=== PATIENT | male | born 1945 | race Caucasian/White ===

== ENCOUNTER 2018-06-23 07:31 | Day surgery (SDC) | payer MEDICARE ==
[~2018-06-23 07:31] MED LIST: ACETAMINOPHEN 325 MG TAB PO; PHENYLEPHRINE HCL 10 % OPHTH. SOL 5ML OD; PROPARACAINE 0.5% OPHTH SOL 15ML OD
[2018-06-23] MEDS ORDERED: CYCLOPENTOLATE 2% OPHTH SOLN 2ML BTL As Ordered (07:41)
[2018-06-23] MEDS ORDERED: OFLOXACIN 0.3 % (OCUFLOX) OPTH SOL 5ML As Ordered (07:41)
[2018-06-23] MEDS ORDERED: PHENYLEPHRINE 2.5% OPHTH SOL 2ML As Ordered (07:41)
[2018-06-23] MEDS ORDERED: TROPICAMIDE 1% OPHTH SOLN 2ML As Ordered (07:41)
[2018-06-23] MEDS ORDERED: MIDAZOLAM INJ 2 MG/2 ML VIAL (J2250) As Ordered (07:52)
[2018-06-23] MEDS ORDERED: fentaNYL 100 MCG/2 ML INJECTION (J3010) As Ordered (07:52)
[2018-06-23] MEDS: PHENYLEPHRINE 2.5% OPHTH SOL 2ML OD (08:10)
[2018-06-23] MEDS: OFLOXACIN 0.3 % (OCUFLOX) OPTH SOL 5ML OD (08:10)
[2018-06-23] MEDS: TROPICAMIDE 1% OPHTH SOLN 2ML OD (08:10)
[2018-06-23] MEDS: CYCLOPENTOLATE 2% OPHTH SOLN 2ML BTL OD (08:10)
[2018-06-23] MEDS: LIDOCAINE 3.5 % 1ML OPHTH TOPICAL GEL OU (08:10)
[2018-06-23] MEDS ORDERED: dexameTHASONE 4 MG/ML 1ML VIAL (J1100) As Ordered (08:19)
[2018-06-23] MEDS ORDERED: ONDANSETRON 4MG/2ML VIAL (J2405) As Ordered (08:19)
[2018-06-23] MEDS: POVIDONE-IODINE 5% OPHTH PREP SOL 30ML As Ordered (09:14)
[2018-06-23] MEDS: LIDOCAINE 1% SDV 5 ML VIAL As Ordered (09:19)
[2018-06-23] MEDS: BALANCED SALT IRRIGATION SOLUTION 500ML BAG (FOR OR EYE MACHINE) As Ordered (09:20)
[2018-06-23] MEDS: HEALON DUET (HEALON 10MG/ML 0.55ML & HEALON ENDOCOAT 30MG/ML 0.85ML) As Ordered (09:26)
[2018-06-23] MEDS: CEFUROXIME 1MG/0.1ML INTRACAMERAL INJ As Ordered (09:27)
[2018-06-23] MEDS: ACETYLCHOLINE OPHTH SOLN 1% 2ML (MIOCHOL-E) As Ordered (09:29)
[2018-06-23] MEDS: KETOROLAC 0.5% OPHTH SOLN OD (09:45)
[2018-06-23] MEDS ORDERED: TRIMETHOBENZAMIDE 300 MG CAP PO (09:45)
[2018-06-23] MEDS: AcetaZOLAMIDE 500 MG ER CAP PO (09:51)
== END 2018-06-23 10:13 | disposition home or self-care (01) ==
LOC: M SDC 07:31
DX: H25.11 Age-related nuclear cataract, right eye (principal); K21.9 Gastro-esophageal reflux disease without esophagitis; F17.210 Nicotine dependence, cigarettes, uncomplicated
CPT/HCPCS: 66984

== ENCOUNTER 2018-07-14 06:35 | Day surgery (SDC) | payer OTHER, MEDICARE ==
[~2018-07-14 06:35] MED LIST changes: -PHENYLEPHRINE HCL 10 % OPHTH. SOL 5ML OD; -PROPARACAINE 0.5% OPHTH SOL 15ML OD
[2018-07-14] MEDS: HEALON DUET (HEALON 10MG/ML 0.55ML & HEALON ENDOCOAT 30MG/ML 0.85ML) As Ordered (06:38)
[2018-07-14] MEDS ORDERED: PHENYLEPHRINE HCL 10 % OPHTH. SOL 5ML OS (07:00)
[2018-07-14] MEDS ORDERED: PROPARACAINE 0.5% OPHTH SOL 15ML OS (07:01)
[2018-07-14] MEDS: LIDOCAINE 3.5 % 1ML OPHTH TOPICAL GEL OU (07:07)
[2018-07-14] MEDS: CYCLOPENTOLATE 2% OPHTH SOLN 2ML BTL OS (07:10)
[2018-07-14] MEDS: TROPICAMIDE 1% OPHTH SOLN 2ML OS (07:10)
[2018-07-14] MEDS: PHENYLEPHRINE 2.5% OPHTH SOL 2ML OS (07:10)
[2018-07-14] MEDS: OFLOXACIN 0.3 % (OCUFLOX) OPTH SOL 5ML OS (07:10)
[2018-07-14] MEDS: POVIDONE-IODINE 5% OPHTH PREP SOL 30ML As Ordered (08:38)
[2018-07-14] MEDS: CEFUROXIME 1MG/0.1ML INTRACAMERAL INJ As Ordered (08:43)
[2018-07-14] MEDS: BALANCED SALT IRRIGATION SOLUTION 500ML BAG (FOR OR EYE MACHINE) As Ordered (08:43)
[2018-07-14] MEDS: LIDOCAINE 1% SDV 5 ML VIAL As Ordered (08:43)
[2018-07-14] MEDS ORDERED: MIDAZOLAM INJ 2 MG/2 ML VIAL (J2250) As Ordered (09:11)
[2018-07-14] MEDS ORDERED: fentaNYL 100 MCG/2 ML INJECTION (J3010) As Ordered (09:11)
[2018-07-14] MEDS ORDERED: ONDANSETRON 4MG/2ML VIAL (J2405) IV (09:15)
[2018-07-14] MEDS ORDERED: TRIMETHOBENZAMIDE 300 MG CAP PO (09:15)
[2018-07-14] MEDS: AcetaZOLAMIDE 500 MG ER CAP PO (09:15)
[2018-07-14] MEDS: KETOROLAC 0.5% OPHTH SOLN OS (09:15)
== END 2018-07-14 09:59 | disposition home or self-care (01) ==
LOC: M SDC 06:35
DX: H25.12 Age-related nuclear cataract, left eye (principal); K21.9 Gastro-esophageal reflux disease without esophagitis; M54.5 Low back pain; F17.210 Nicotine dependence, cigarettes, uncomplicated; Z79.899 Other long term (current) drug therapy
CPT/HCPCS: 66984

== ENCOUNTER 2023-08-31 12:38 | Day surgery (SDC) | payer MEDICARE ==
[~2023-08-31] VITALS: Ht 185.4 cm; Wt 75.6 kg
[~2023-08-31 12:38] MED LIST changes: -ACETAMINOPHEN 325 MG TAB PO; +AMLO25TA PO; +BACITRACIN OINTMENT 30GM TUBE As Ordered ONE; +ISOVUE-300 61% 100ML VIAL As Ordered ONE; +KETO0.5S2 OD; +LIDOCAINE 1% MDV 20ML VIAL As Ordered ONE; +POLYSPORIN TOPICAL OINTMENT 15GM As Ordered ONE; +PREDOPD OD; +TOBR0.3S37 OD; +VALS1TAB66 PO; +ceFAZolin SOD 2 GM in IV 1 EA IV ONE
[2023-08-31] MEDS ORDERED: ISOVUE-300 61% 100ML VIAL As Ordered ONE (12:45)
[2023-08-31] MEDS ORDERED: LR 1,000 ML IV SCH (13:30)
[2023-08-31] MEDS ORDERED: propofoL 200 MG/20 ML VIAL As Ordered ONE (13:52)
[2023-08-31] MEDS ORDERED: KETOROLAC 60MG 2ML VIAL As Ordered ONE (13:52)
[2023-08-31] MEDS ORDERED: LIDOCAINE 2% 100MG/5ML SDV (FOR ANES.) As Ordered ONE (13:52)
[2023-08-31] MEDS ORDERED: MIDAZOLAM INJ 2MG/2ML VIAL As Ordered ONE (13:52)
[2023-08-31] MEDS ORDERED: fentaNYL 100 MCG/2 ML INJECTION As Ordered ONE (13:52)
[2023-08-31] MEDS ORDERED: fentaNYL 100 MCG/2 ML INJECTION IV PRN (16:35)
[2023-08-31] MEDS ORDERED: ONDANSETRON 4MG 2ML VIAL IV PRN (16:35)
[2023-08-31] MEDS ORDERED: oxyCODONE 5MG TAB PO PRN (16:35)
[2023-08-31 17:45] VITALS: BP 162/72; TEMP 97.8; O2SAT 100
[2023-08-31] MEDS ORDERED: ACETAMINOPHEN TAB 650MG DOSE (2X325MG) PO PRN (18:20)
[2023-08-31 20:10] VITALS: BP 137/62; TEMP 98.5; O2SAT 100
[2023-08-31 21:33] VITALS: BP 161/70
[2023-09-01] VITALS (7 sets, daily range): BP systolic 164–182; BP diastolic 66–82; TEMP 96.8–98.1; O2SAT 99–100
[2023-09-01] MEDS ORDERED: VALSARTAN 40MG TABLET (DIOVAN) PO ONE (04:40)
[2023-09-01] MEDS ORDERED: amLODIPine 5 MG TAB PO SCH (06:55)
[2023-09-01] MEDS ORDERED: VALSARTAN 40MG TABLET (DIOVAN) PO SCH (09:00)
[2023-09-01] MEDS ORDERED: MULTIVITAMINS/MINERALS THERAP 1 TAB PO SCH (09:00)
[2023-09-01] MEDS ORDERED: AMLO1TAB24 PO (13:58)
[2023-09-01] MEDS ORDERED: ACET1TAB55 PO (13:58)
== END 2023-09-01 14:58 | disposition home or self-care (01) ==
LOC: M SDC 12:38 → M PCU 17:30 → UNDOADMIN 17:30 → M PCU 17:30 → UNDODISIN 09-01 14:58 → M SDC 09-01 14:58
PROVIDERS: ATTEND Internal Medicine Cardiovascular Disease
DX: I44.2 Atrioventricular block, complete (principal); I44.1 Atrioventricular block, second degree; I10 Essential (primary) hypertension; R94.31 Abnormal electrocardiogram [ECG] [EKG]; K21.9 Gastro-esophageal reflux disease without esophagitis; Z79.899 Other long term (current) drug therapy; F17.218 Nicotine dependence, cigarettes, with other nicotine-induced disorders
CPT/HCPCS: 33208; 71045; 71046; 76000; 93005; C1785; C1898; J0690; J1885; J2250; J3010; Q9967